=== PATIENT | male | born 1960 | race Caucasian/White ===

== ENCOUNTER 2019-12-02 01:06 | Outpatient (CLI) | payer OTHER, SELFPAY ==
[2019-12-02 16:42] LABS: SARS-CoV-2 RNA PCR Negative
== END 2019-12-02 01:07 | disposition home or self-care (01) ==
LOC: ANHCOVIDDT 01:07
PROVIDERS: PCP Internal Medicine; Visit Provider Surgery
DX: Z01.812 Encounter for preprocedural laboratory examination (principal); Z20.828 Contact with and (suspected) exposure to other viral communicable diseases
CPT/HCPCS: 87635; C9803; U0003

== ENCOUNTER 2019-12-05 00:17 | Day surgery (SDC) | payer OTHER, SELFPAY ==
[2019-11-10 13:40] VITALS: BMI 27.8
[2019-11-29 09:10] VITALS: BMI 27.3
[2019-12-05 11:13] VITALS: BP 164/92; PULSE 55; RESP 16; TEMP 36.2; O2SAT 100
[2019-12-05] MEDS: LACTATED RINGERS 1,000 ML 150 ML IV CONT (11:22)
--- NOTE | 2019-12-05 11:59 | PM.IMHP ---
H&P: HPI History of Present Illness Chief complaint: Neoplasm Screening/ Reflux/ Dysphagia Narrative: Arnoldo Garber is a 59 year old male who presents for EGD and colonoscopy. He has had dysphagia and acid reflux for years. He has never had a colonoscopy. Denies fam hx colon cancer. Review of Systems Review of Systems: All systems reviewed & are unremarkable except as noted in HPI and below PMFSH Past Medical History Medical History Kidney stones Mixed hyperlipidemia Vitamin D deficiency, unspecified Surgical History Surgical History History of testicular surgery Family History Family History Father Cancer Social History Social History Smoking status: Never smoker Drinks per week: 12 Substance use: never Gender identity (if verbalized by the patient): Male Spiritual care concerns: No Agree to blood products: Yes Meds Home Medications and Allergies Home Medications Medication Instructions Recorded Confirmed Type atorvastatin 40 mg tablet 40 mg PO DAILY 90 Days #90 tablet 10/10/19 11/29/19 Rx cholecalciferol (vitamin D3) 125 125 mcg PO DAILY 90 Days #90 cap 10/10/19 11/29/19 Rx mcg (5,000 unit) capsule Allergies Allergy/AdvReac Type Severity Reaction Status Date / Time No Known Allergies Allergy Verified 12/05/19 11:11 Vital Signs Vital Signs - 24 hr 12/05/19 11:13 Temperature 36.2 C L Pulse Rate 55 L Respiratory Rate 16 Blood Pressure 164/92 H Pulse Oximetry 100 Exam Const: General: alert; No acute distress Orientation/consciousness: patient oriented x3 Limitations: no limitations HENMT: Head: normocephalic and atraumatic Ears: hearing grossly normal bilaterally General nose exam: Normal external nose present and Normal nares present Mouth: Yes Normal oral and palatal mucosa present and Yes moist mucous membranes Eyes: General: appearance normal, both eyes and all related structures Conjunctivae: conjunctivae normal Sclera: sclerae normal Pupils: Equal, round and reactive pupils present EOM: EOMs intact bilaterally Neck: Neck: normal visual inspection, full ROM, no lymphadenopathy, supple and no JVD Lymphatic: no lymphadenopathy noted Chest: Chest palpation & inspection: normal inspection of the chest Resp: Effort & Inspection: normal respiratory effort and able to speak in complete sentences Auscultation: clear to auscultation bilaterally Percussion: percussion normal Cardio: Jugular venous distension: no JVD Rate: regular rate Rhythm: regular rhythm Heart sounds: S1 normal heart sound present and S2 normal heart sound present Peripheral pulses: Peripheral pulses 2+ throughout GI: Inspection: normal to inspection GI Palp: No abdominal tenderness, Yes Soft to palpation, No Guarding due to palpation present (GI), No Hernia present and No Rebound tenderness present Percussion: Yes normal to percussion Auscultation: normal bowel sounds : General: Yes no CVA tenderness Back/Spine/Pelvis: Back: no CVA tenderness Skin: General skin exam: normal color and dry skin Neuro: General: patient oriented x3, gait normal, moves all extremities, no focal motor deficits and CN's II-XI intact bilaterally Cranial nerves: Yes Equal, round and reactive pupils present Speech: normal speech Extrem: General: normal to inspection and capillary refill normal Assessment and Plan Assessment and plan (1) Screening for malignant neoplasm of colon: Code(s): Z12.11 - Encounter for screening for malignant neoplasm of colon Status: Acute Assessment and Plan: I have recommended EGD and colonoscopy. I have discussed the procedure, risks, benefits, and alternatives with the patient. All questions answered. No changes since last see
--- NOTE | 2019-12-05 12:05 | WPDANESEPPF ---
Anes - Initial Pre Proc Eval Procedure: Operation Date: 12/05/19 13:00 Proposed Procedures p Esophagogastroduodenoscopy & Screening Colonoscopy - Kvng Solomon DO Date/Time: 12/05/19 12:05 Surgeon: Kvng Solomon DO Pre Op Diagnosis: Neoplasm Screening/ Reflux/ Dysphagia Patient Data Age: 59 Gender: M Height: 5 ft 2 in Weight: 67 kg Last Vital Signs Temp 36.2 C L 12/05/19 11:13 Pulse 55 L 12/05/19 11:13 Resp 16 12/05/19 11:13 BP 164/92 H 12/05/19 11:13 Pulse Ox 100 12/05/19 11:13 Allergies Allergy/AdvReac Type Severity Reaction Status Date / Time No Known Allergies Allergy Verified 12/05/19 11:11 Home Medications Medication Instructions Recorded Confirmed Type atorvastatin 40 mg tablet 40 mg PO DAILY 90 Days #90 tablet 10/10/19 11/29/19 Rx cholecalciferol (vitamin D3) 125 125 mcg PO DAILY 90 Days #90 cap 10/10/19 11/29/19 Rx mcg (5,000 unit) capsule Patient hx anesthesia problems: none Family hx anesthesia problems: none PMFSH Past Medical History Medical History Kidney stones Mixed hyperlipidemia Vitamin D deficiency, unspecified Surgical History Surgical History History of testicular surgery Family History Family History Father Cancer Social History Social History Smoking status: Never smoker Drinks per week: 12 Substance use: never Gender identity (if verbalized by the patient): Male Spiritual care concerns: No Agree to blood products: Yes Anes - Eval Final PreProcedure Day of Procedure 12/05/19 12:05 Patient weight: overweight Heart: regular rate and rhythm Lungs: clear to auscultation Airway: Mallampati scale class II Neurological: alert and oriented Last oral intake: >/= 8 hours ASA classification: II Emergent: no Anesthetic plan: proceed Anesthesia type and monitoring: general GIVS and standard monitoring Informed Consent: The patient's anesthetic plan and its attendant risks and benefits were discussed with the patient/family/POA. Questions were solicited and answers provided to the satisfaction of the patient/family/POA.
[2019-12-05 13:45] VITALS: BP 125/87; PULSE 62; RESP 17; O2SAT 96
[2019-12-05 13:55] VITALS: BP 123/84; PULSE 59; RESP 20; O2SAT 100
[2019-12-05 14:05] VITALS: BP 141/88; PULSE 49; RESP 20; O2SAT 99
== END 2019-12-05 14:19 | disposition home or self-care (01) ==
PROVIDERS: PCP Internal Medicine; Visit Provider Surgery
PROC: 0DJ08ZZ Inspection of Upper Intestinal Tract, Via Natural or Artificial Opening Endoscopic (ICD-10-PCS; CPT 43235; principal; 2019-12-05 13:00)
DX: Z12.11 Encounter for screening for malignant neoplasm of colon (principal); K57.30 Diverticulosis of large intestine without perforation or abscess without bleeding; K63.5 Polyp of colon; R13.10 Dysphagia, unspecified; K31.7 Polyp of stomach and duodenum; K21.9 Gastro-esophageal reflux disease without esophagitis; K44.9 Diaphragmatic hernia without obstruction or gangrene; K29.30 Chronic superficial gastritis without bleeding; E78.2 Mixed hyperlipidemia; E55.9 Vitamin D deficiency, unspecified
CPT/HCPCS: 45380; 43239; 43249; 87081; 88305; C1726; J2704; J7120

== ENCOUNTER → 2019-12-11 16:05 | Outpatient (REF) | payer OTHER, SELFPAY | LOC: ANHLAB 16:05 | PROVIDERS: PCP Internal Medicine; Visit Provider Nurse Practitioner | DX: C44.329 Squamous cell carcinoma of skin of other parts of face (principal) | CPT/HCPCS: 88305 ==

== ENCOUNTER → 2020-02-19 07:53 | Outpatient (REF) | payer OTHER, SELFPAY | LOC: ANHLAB 07:53 | PROVIDERS: PCP Internal Medicine; Visit Provider Nurse Practitioner | DX: C44.329 Squamous cell carcinoma of skin of other parts of face (principal) | CPT/HCPCS: 88305; 88331 ==